=== PATIENT | male | born 1950 | race Two or more races ===

== ENCOUNTER → 2017-03-24 | Outpatient (CLI) | payer OTHER ==
[2017-03-24 11:04] LABS: Urine RBC None Seen /hpf (0 - 3)
[2017-03-24 12:00] LABS: Basophils # (auto) 0 uL; Basophils % (auto) 0.5 % (0.0-2.0); Eosinophils # (auto) 0.3 uL; Eosinophils % (auto) 6.1 % (0.0-7.0); Hematocrit 49.8 % (41.0-53.0); Hemoglobin 16.9 g/dL (13.5-17.5); Lymphocytes # (auto) 1.3 uL; Mean Corpuscular Hemoglobin 31.1 pg (28.0-32.0); Mean Corpuscular Hgb Conc. 33.9 g/dL (32.0-36.0); Mean Corpuscular Volume 91.8 fL (80.0-100.0); Mean Platelet Volume 9.8 fL (7.4-10.4); Monocytes # (auto) 0.5 uL; Monocytes % (auto) 10.4 % (0.0-12.0); Neutrophils # (auto) 2.5 uL; Platelet Count (auto) 141 10^3/uL (140-450); White Blood Cell 4.5 10^3/uL (4.4-10.8)
[2017-03-24 12:07] LABS: Urine Bilirubin Negative (Negative); Urine Blood Negative /uL (Negative); Urine Color Yellow (Yellow); Urine Glucose Normal (Normal); Urine Ketone Negative (Negative); Urine Nitrite Negative (Negative); Urine Squamous Epithelial Cell FEW /hpf (<5); Urine Urobilinogen Normal (Negative); Urine pH 7.5 (5.0-8.0)
[2017-03-24 13:08] LABS: Albumin 3.8 g/dL (3.4-5.0); BUN/Creatinine Ratio 17.4; Bilirubin, Total 1.3 mg/dL (0.2-1.0); Calcium 8.7 mg/dL (8.5-10.1); Potassium 5.2 mmol/L (3.5-5.1); Total Protein 7.4 g/dL (6.4-8.2)
== END | disposition home or self-care (01) ==
LOC: LAB 10:47
DX: E78.5 Hyperlipidemia, unspecified (principal)
CPT/HCPCS: 36415; 80053; 80061; 81001; 84443; 85025

== ENCOUNTER 2017-12-17 07:49 | Inpatient (IN) | payer OTHER, MEDICAID ==
[~2017-12-17] VITALS: Ht 175.3 cm; Wt 69.4 kg
[2017-12-17] VITALS (40 sets, daily range): BP systolic 106–167; BP diastolic 74–113
[2017-12-17] MEDS ORDERED: MIDAZOLAM DRIP 50 mg/50mL 50 ML IV ONE (08:08)
[2017-12-17] MEDS: MIDAZOLAM DRIP 50 mg/50mL 50 ML IV SCH ×2 (08:20→22:06)
[2017-12-17 08:33] LABS: Hematocrit 49.6 % (41.0-53.0); Hemoglobin 15.9 g/dL (13.5-17.5); Mean Corpuscular Hemoglobin 30.8 pg (28.0-32.0); Mean Corpuscular Hgb Conc. 32.1 g/dL (32.0-36.0); Mean Corpuscular Volume 95.9 fL (80.0-100.0); Platelet Count (auto) 130 10^3/uL (140-450); Red Blood Cells 5.17 10^6/uL (4.5-5.90); Red Cell Distribution Width 15.5 % (11.8-14.3); White Blood Cell 8.2 10^3/uL (4.4-10.8)
[2017-12-17] MEDS ORDERED: IOHEXOL 350 MG/ML 100ML IJ ONE ×2 (08:34→10:58)
[2017-12-17 08:41] LABS: Band Neutrophils % (manual) 0; Basophils % (manual) 0 (0.0-2.0); Blast Cells 0; Metamyelocytes % 0; Myelocytes % 0; Promyelocytes % 0; Reactive Lymphocytes 0
[2017-12-17 08:44] LABS: Albumin 3.3 g/dL (3.4-5.0); BUN/Creatinine Ratio 10.7; Bilirubin, Total 0.8 mg/dL (0.2-1.0); Calcium 8.2 mg/dL (8.5-10.1); Potassium 3.4 mmol/L (3.5-5.1); Total Protein 7.1 g/dL (6.4-8.2)
[2017-12-17 08:50] LABS: INR 1.03 (0.9-1.15); Partial Thromboplastin Time 28.7 sec (22.64-33.71); Prothrombin Time 11.2 sec (9.37-12.3)
[2017-12-17] MEDS ORDERED: SODIUM CHLORIDE 0.9% 1,000 ML IV ONE ×2 (09:03)
[2017-12-17] MEDS ORDERED: InsuLIN REG 1unit/0.01ml Soln (100units/ml) IV ONE (09:15)
[2017-12-17 09:19] LABS: Eosinophils % (manual) 3 (0-7); Lymphocytes % (manual) 53 (10.0-50.0); Monocytes % (manual) 3 (0-12)
[2017-12-17] MEDS ORDERED: LIDOCAINE 2%HCL (LOCAL ANESTH.) INJ 20ML MDV ONE (10:58)
[2017-12-17] MEDS ORDERED: IODIXANOL 320MG/ML 100ML BTL IV ONE (11:05)
[2017-12-17] MEDS ORDERED: SODIUM CHLORIDE 0.9% 1,000 ML IV SCH (11:12)
[2017-12-17] MEDS ORDERED: PROMETHAZINE HCL 25 MG/ML 1ML IV PRN (11:15)
[2017-12-17] MEDS ORDERED: DEXTROSE (50%) 50ML SYRG IV PRN ×2 (11:15)
[2017-12-17] MEDS ORDERED: NITROGLYCERIN 0.4 MG SL TAB SL PRN (11:15)
[2017-12-17] MEDS ORDERED: MORPHINE SULFATE 4 MG/ML SYR/VIAL IV PRN ×2 (11:15)
[2017-12-17] MEDS ORDERED: LORazepam 2MG/ML-1ML VIAL IV PRN (11:15)
[2017-12-17] MEDS ORDERED: SODIUM BICARBONATE 8.4% INJ 50ML SYRINGE IV ONE (11:21)
[2017-12-17] MEDS ORDERED: EPINEPHrine HCL 1 MG/10 ML SYRG IV ONE (11:21)
[2017-12-17] MEDS ORDERED: ANGIOMAX 250 MG VIAL IV ONE (11:23)
[2017-12-17] MEDS ORDERED: SODIUM CHL 0.9% 50 ML ONE (11:23)
[2017-12-17] MEDS ORDERED: ASPirin 81 mg TAB PO ONE (11:30)
[2017-12-17] MEDS ORDERED: THIAMINE HCL 100 MG/ML 2ML VIAL IV ONE (11:30)
[2017-12-17] MEDS ORDERED: PANTOPRAZOLE 40 MG/10 ML VIAL IV ONE (11:30)
[2017-12-17] MEDS ORDERED: CLOPIDOGREL 300 MG TAB ONE (11:58)
[2017-12-17] MEDS: ACCU-CHEK COMFORT CURVE STRIP VI SCH ×3 (12:00→20:03)
[2017-12-17] MEDS: InsuLIN REG 1unit/0.01ml Soln (100units/ml) SC SCH ×3 (12:00→20:03)
[2017-12-17] MEDS ORDERED: METOPROLOL TARTRATE 1MG/1ML-5ML VIAL IV PRN ×2 (14:15→14:30)
[2017-12-17] MEDS: SODIUM CHLORIDE 0.9% 1,000 ML IV SCH (15:30)
[2017-12-17 15:58] LABS: CRP High Sensitivity 0.301 mg/dL (< 0.3)
[2017-12-17] MEDS: MORPHINE SULFATE 4 MG/ML SYR/VIAL IV PRN (16:35)
[2017-12-17 16:58] LABS: Alcohol, Urine < 3.0 mg/dL (0-5); Amphetamine Screen, Urine NEGATIVE (NEGATIVE); Barbiturate Scree,Urine NEGATIVE (NEGATIVE); Benzodiazephine Screen, Urine POSITIVE (NEGATIVE); Cannabinoid Screen, Urine NEGATIVE (NEGATIVE); Cocaine Screen, Urine NEGATIVE (NEGATIVE); Opiate Scree,Urine NEGATIVE (NEGATIVE); Phencyclidine Screen, Urine NEGATIVE (NEGATIVE)
[2017-12-17 17:15] LABS: Urine Bacteria NONE SEEN /hpf (None Seen); Urine Blood 2+ /uL (Negative); Urine Mucus FEW (None Seen); Urine WBC 8 /hpf (0 - 3)
[2017-12-17 17:16] LABS: Urine Specific Gravity > 1.050 (1.001-1.035)
[2017-12-17] MEDS ORDERED: MULT-352 OR (20:58)
[2017-12-17] MEDS ORDERED: IBUP200C3 PO (20:58)
[2017-12-17] MEDS ORDERED: MELA3TAB27 PO (20:58)
[2017-12-17] MEDS: ATORVASTATIN 20 MG TAB PO SCH (22:06)
[2017-12-17] MEDS: METOPROLOL TARTRATE 50 MG TAB PO SCH (22:07)
[2017-12-18] VITALS (99 sets, daily range): BP systolic 100–155; BP diastolic 61–110
[2017-12-18] MEDS: ACCU-CHEK COMFORT CURVE STRIP VI SCH ×6 (00:11→20:00)
[2017-12-18] MEDS: InsuLIN REG 1unit/0.01ml Soln (100units/ml) SC SCH ×6 (00:12→20:00)
[2017-12-18] MEDS: SODIUM CHLORIDE 0.9% 1,000 ML IV SCH ×2 (03:15→14:30)
[2017-12-18 04:37] LABS: Basophils # (auto) 0 uL; Basophils % (auto) 0.1 % (0.0-2.0); Eosinophils # (auto) 0 uL; Hematocrit 46.7 % (41.0-53.0); Hemoglobin 15.9 g/dL (13.5-17.5); Lymphocytes # (auto) 0.5 uL; Lymphocytes % (auto) 4.2 % (10.0-50.0); Mean Corpuscular Hemoglobin 30.9 pg (28.0-32.0); Mean Corpuscular Volume 90.7 fL (80.0-100.0); Monocytes # (auto) 1.1 uL; Monocytes % (auto) 8.2 % (0.0-12.0); Neutrophils # (auto) 11.3 uL; Neutrophils % (auto) 87.5 % (37.0-80.0); Nucleated Red Blood Cells % 0.5 %; Platelet Count (auto) 121 10^3/uL (140-450); Red Blood Cells 5.15 10^6/uL (4.5-5.90); Red Cell Distribution Width 14.7 % (11.8-14.3); White Blood Cell 12.9 10^3/uL (4.4-10.8)
[2017-12-18 05:01] LABS: Albumin 3.3 g/dL (3.4-5.0); BUN/Creatinine Ratio 25.9; Bilirubin, Total 1.9 mg/dL (0.2-1.0); Calcium 7.8 mg/dL (8.5-10.1); Potassium 4.2 mmol/L (3.5-5.1); Total Protein 6.9 g/dL (6.4-8.2)
[2017-12-18 05:07] LABS: Cholesterol 188 mg/dL (< 200); HDL Cholesterol 49 mg/dL (40-59); LDL Cholesterol 129 mg/dL (< 100); Triglycerides 105 mg/dL (< 150)
[2017-12-18] MEDS: MORPHINE SULFATE 4 MG/ML SYR/VIAL IV PRN ×3 (06:13→21:48)
[2017-12-18] MEDS: LISINOPRIL 10 MG TAB PO SCH (10:00)
[2017-12-18] MEDS: PANTOPRAZOLE 40 MG/10 ML VIAL IV SCH (10:07)
[2017-12-18] MEDS: THIAMINE HCL 100 MG/ML 2ML VIAL IV SCH (10:07)
[2017-12-18] MEDS: METOPROLOL TARTRATE 50 MG TAB PO SCH ×2 (10:08→22:00)
[2017-12-18] MEDS: ASPirin 81 mg TAB PO SCH (10:08)
[2017-12-18] MEDS: MIDAZOLAM DRIP 50 mg/50mL 50 ML IV SCH ×3 (10:43→20:43)
[2017-12-18] MEDS ORDERED: FAM20T PO (18:21)
[2017-12-18] MEDS ORDERED: [UNRECOGNIZED DRUG - CODE] OR (18:21)
[2017-12-18] MEDS ORDERED: LEVO750T2 PO (18:21)
[2017-12-18] MEDS: ATORVASTATIN 20 MG TAB PO SCH (22:00)
[2017-12-18] MEDS: PROPOFOL 100 ML IV SCH (23:45)
[2017-12-19] VITALS (88 sets, daily range): BP systolic 85–118; BP diastolic 51–78
[2017-12-19] MEDS: ACCU-CHEK COMFORT CURVE STRIP VI SCH ×6 (00:15→20:00)
[2017-12-19] MEDS: MORPHINE SULFATE 4 MG/ML SYR/VIAL IV PRN (00:18)
[2017-12-19] MEDS ORDERED: PROPOFOL 100 ML IV ONE (00:45)
[2017-12-19] MEDS: MIDAZOLAM DRIP 50 mg/50mL 50 ML IV SCH ×3 (01:40→06:07)
[2017-12-19] MEDS: InsuLIN REG 1unit/0.01ml Soln (100units/ml) SC SCH ×6 (04:00→20:00)
[2017-12-19] MEDS: SODIUM CHLORIDE 0.9% 1,000 ML IV SCH ×2 (04:15→16:45)
[2017-12-19 04:57] LABS: Basophils # (auto) 0 uL; Basophils % (auto) 0.1 % (0.0-2.0); Eosinophils # (auto) 0 uL; Eosinophils % (auto) 0.1 % (0.0-7.0); Hematocrit 41.8 % (41.0-53.0); Hemoglobin 14.1 g/dL (13.5-17.5); Lymphocytes # (auto) 0.4 uL; Lymphocytes % (auto) 11.1 % (10.0-50.0); Mean Corpuscular Hemoglobin 31.1 pg (28.0-32.0); Mean Corpuscular Hgb Conc. 33.9 g/dL (32.0-36.0); Mean Corpuscular Volume 91.8 fL (80.0-100.0); Monocytes # (auto) 0.4 uL; Monocytes % (auto) 11.6 % (0.0-12.0); Neutrophils # (auto) 2.8 uL; Neutrophils % (auto) 77.1 % (37.0-80.0); Nucleated Red Blood Cells % 0.1 %; Platelet Count (auto) 81 10^3/uL (140-450); Red Blood Cells 4.55 10^6/uL (4.5-5.90); Red Cell Distribution Width 14.5 % (11.8-14.3); White Blood Cell 3.6 10^3/uL (4.4-10.8)
[2017-12-19 05:00] LABS: BUN/Creatinine Ratio 31.1; Calcium 7.7 mg/dL (8.5-10.1); Potassium 3.6 mmol/L (3.5-5.1)
[2017-12-19] MEDS: PROPOFOL 100 ML IV SCH (07:54)
[2017-12-19] MEDS: LISINOPRIL 10 MG TAB PO SCH (09:55)
[2017-12-19] MEDS: METOPROLOL TARTRATE 50 MG TAB PO SCH ×2 (09:55→22:00)
[2017-12-19] MEDS: ASPirin 81 mg TAB PO SCH (09:56)
[2017-12-19] MEDS: PANTOPRAZOLE 40 MG/10 ML VIAL IV SCH (09:56)
[2017-12-19] MEDS: THIAMINE HCL 100 MG/ML 2ML VIAL IV SCH (09:56)
[2017-12-19] MEDS: NOREPINEPHRINE 8 MG/250ML KIT 250 ML IV SCH (16:45)
[2017-12-19] MEDS ORDERED: cefTRIAXone 1GM/10ml IVPUSH 10 ML IV SCH (17:00)
[2017-12-19] MEDS ORDERED: VANCOMYCIN 1,250 MG in D5W 5% 250 ML IV SCH (18:00)
[2017-12-19] MEDS: ATORVASTATIN 20 MG TAB PO SCH (22:00)
[2017-12-20] VITALS (95 sets, daily range): BP systolic 85–154; BP diastolic 45–86
[2017-12-20] MEDS: InsuLIN REG 1unit/0.01ml Soln (100units/ml) SC SCH ×3 (04:00→08:00)
[2017-12-20] MEDS: ACCU-CHEK COMFORT CURVE STRIP VI SCH ×3 (04:00→08:14)
[2017-12-20 04:01] LABS: Basophils # (auto) 0 uL; Basophils % (auto) 0.1 % (0.0-2.0); Eosinophils # (auto) 0 uL; Eosinophils % (auto) 0.1 % (0.0-7.0); Hematocrit 35.1 % (41.0-53.0); Hemoglobin 12.3 g/dL (13.5-17.5); Lymphocytes # (auto) 0.5 uL; Lymphocytes % (auto) 9.1 % (10.0-50.0); Mean Corpuscular Hgb Conc. 34.9 g/dL (32.0-36.0); Mean Corpuscular Volume 91.5 fL (80.0-100.0); Monocytes # (auto) 0.4 uL; Monocytes % (auto) 8.4 % (0.0-12.0); Neutrophils # (auto) 4.1 uL; Neutrophils % (auto) 82.3 % (37.0-80.0); Platelet Count (auto) 68 10^3/uL (140-450); Red Blood Cells 3.84 10^6/uL (4.5-5.90); Red Cell Distribution Width 14.6 % (11.8-14.3)
[2017-12-20 04:17] LABS: BUN/Creatinine Ratio 38.4; Calcium 7.9 mg/dL (8.5-10.1); Potassium 3.7 mmol/L (3.5-5.1)
[2017-12-20] MEDS: SODIUM CHLORIDE 0.9% 1,000 ML IV SCH ×2 (05:13→17:45)
[2017-12-20] MEDS: MIDAZOLAM DRIP 50 mg/50mL 50 ML IV SCH (08:53)
[2017-12-20] MEDS: LISINOPRIL 10 MG TAB PO SCH (10:00)
[2017-12-20] MEDS ORDERED: VANCOMYCIN 1GM/250ML 250 ML IV SCH (10:00)
[2017-12-20] MEDS: METOPROLOL TARTRATE 50 MG TAB PO SCH ×2 (10:00→21:45)
[2017-12-20] MEDS: THIAMINE HCL 100 MG/ML 2ML VIAL IV SCH (10:29)
[2017-12-20] MEDS: ASPirin 81 mg TAB PO SCH (10:30)
[2017-12-20] MEDS: PANTOPRAZOLE 40 MG/10 ML VIAL IV SCH (10:30)
[2017-12-20] MEDS: VANCOMYCIN 1,250 MG in D5W 5% 250 ML IV SCH ×2 (10:30→21:45)
[2017-12-20] MEDS ORDERED: LEVOFLOXACIN 750MG 150 ML IV SCH (11:00)
[2017-12-20] MEDS: NOREPINEPHRINE 8 MG/250ML KIT 250 ML IV SCH (11:45)
[2017-12-20] MEDS ORDERED: PIPERACILLIN-TAZOB 3.375GM 50 ML IV SCH (12:00)
[2017-12-20] MEDS: LEVOFLOXACIN 500MG 100 ML IV SCH (16:30)
[2017-12-20] MEDS: LEVOFLOXACIN 250MG 50 ML IV SCH (17:23)
[2017-12-20] MEDS: ATORVASTATIN 20 MG TAB PO SCH (21:45)
[2017-12-20] MEDS: AMIODARONE HCL 200 MG TAB PO SCH (21:45)
[2017-12-21] VITALS (104 sets, daily range): BP systolic 11–137; BP diastolic 43–88
[2017-12-21] MEDS: PROPOFOL 100 ML IV SCH (00:49)
[2017-12-21] MEDS: MIDAZOLAM DRIP 50 mg/50mL 50 ML IV SCH (02:00)
[2017-12-21 04:06] LABS: Basophils # (auto) 0 uL; Basophils % (auto) 0.1 % (0.0-2.0); Eosinophils # (auto) 0 uL; Eosinophils % (auto) 0.7 % (0.0-7.0); Hematocrit 34.5 % (41.0-53.0); Hemoglobin 11.7 g/dL (13.5-17.5); Lymphocytes # (auto) 0.3 uL; Mean Corpuscular Hemoglobin 30.9 pg (28.0-32.0); Mean Corpuscular Volume 90.9 fL (80.0-100.0); Monocytes # (auto) 0.5 uL; Monocytes % (auto) 9.9 % (0.0-12.0); Neutrophils # (auto) 4.4 uL; Neutrophils % (auto) 83.3 % (37.0-80.0); Platelet Count (auto) 75 10^3/uL (140-450); Red Cell Distribution Width 14.2 % (11.8-14.3); White Blood Cell 5.2 10^3/uL (4.4-10.8)
[2017-12-21 04:13] LABS: Calcium 8.1 mg/dL (8.5-10.1); Potassium 3.6 mmol/L (3.5-5.1)
[2017-12-21 04:17] LABS: BUN/Creatinine Ratio 43.3
[2017-12-21] MEDS: SODIUM CHLORIDE 0.9% 1,000 ML IV SCH ×2 (06:26→18:41)
[2017-12-21] MEDS: LISINOPRIL 10 MG TAB PO SCH (10:00)
[2017-12-21] MEDS: METOPROLOL TARTRATE 50 MG TAB PO SCH ×2 (10:00→22:00)
[2017-12-21] MEDS: ASPirin 81 mg TAB PO SCH (10:33)
[2017-12-21] MEDS: THIAMINE HCL 100 MG/ML 2ML VIAL IV SCH (10:33)
[2017-12-21] MEDS: AMIODARONE HCL 200 MG TAB PO SCH ×2 (10:33→22:15)
[2017-12-21] MEDS: PANTOPRAZOLE 40 MG/10 ML VIAL IV SCH (10:33)
[2017-12-21] MEDS: VANCOMYCIN 1,250 MG in D5W 5% 250 ML IV SCH ×2 (10:40→20:20)
[2017-12-21] MEDS: LEVOFLOXACIN 500MG 100 ML IV SCH (16:00)
[2017-12-21] MEDS: NOREPINEPHRINE 8 MG/250ML KIT 250 ML IV SCH (16:45)
[2017-12-21] MEDS: LEVOFLOXACIN 250MG 50 ML IV SCH (17:14)
[2017-12-21] MEDS: ATORVASTATIN 20 MG TAB PO SCH (22:15)
[2017-12-22] VITALS (90 sets, daily range): BP systolic 101–167; BP diastolic 58–110
[2017-12-22] MEDS: PROPOFOL 100 ML IV SCH (00:05)
[2017-12-22] MEDS: VANCOMYCIN 1,250 MG in D5W 5% 250 ML IV SCH ×3 (04:00→22:55)
[2017-12-22 04:21] LABS: Basophils # (auto) 0 uL; Basophils % (auto) 0.1 % (0.0-2.0); Eosinophils # (auto) 0.1 uL; Eosinophils % (auto) 1.6 % (0.0-7.0); Hematocrit 34.4 % (41.0-53.0); Hemoglobin 11.9 g/dL (13.5-17.5); Lymphocytes # (auto) 0.4 uL; Lymphocytes % (auto) 7.9 % (10.0-50.0); Mean Corpuscular Hemoglobin 31.1 pg (28.0-32.0); Mean Corpuscular Hgb Conc. 34.5 g/dL (32.0-36.0); Mean Corpuscular Volume 90.2 fL (80.0-100.0); Monocytes # (auto) 0.5 uL; Monocytes % (auto) 10.2 % (0.0-12.0); Neutrophils # (auto) 4.1 uL; Neutrophils % (auto) 80.2 % (37.0-80.0); Platelet Count (auto) 92 10^3/uL (140-450); Red Blood Cells 3.82 10^6/uL (4.5-5.90); Red Cell Distribution Width 14.6 % (11.8-14.3); White Blood Cell 5.2 10^3/uL (4.4-10.8)
[2017-12-22 04:24] LABS: Albumin 1.9 g/dL (3.4-5.0); Calcium 8.1 mg/dL (8.5-10.1); Potassium 3.6 mmol/L (3.5-5.1)
[2017-12-22 04:30] LABS: BUN/Creatinine Ratio 40.4; Bilirubin, Total 1.5 mg/dL (0.2-1.0); Total Protein 5.7 g/dL (6.4-8.2)
[2017-12-22] MEDS: SODIUM CHLORIDE 0.9% 1,000 ML IV SCH ×2 (04:49→19:45)
[2017-12-22] MEDS: MIDAZOLAM DRIP 50 mg/50mL 50 ML IV SCH ×2 (08:30→20:13)
[2017-12-22] MEDS: METOPROLOL TARTRATE 50 MG TAB PO SCH ×2 (10:00→22:57)
[2017-12-22] MEDS: LISINOPRIL 10 MG TAB PO SCH (10:00)
[2017-12-22] MEDS: THIAMINE HCL 100 MG/ML 2ML VIAL IV SCH (10:49)
[2017-12-22] MEDS: PANTOPRAZOLE 40 MG/10 ML VIAL IV SCH (10:49)
[2017-12-22] MEDS: AMIODARONE HCL 200 MG TAB PO SCH ×2 (10:50→22:56)
[2017-12-22] MEDS: ASPirin 81 mg TAB PO SCH (10:50)
[2017-12-22] MEDS: LEVOFLOXACIN 500MG 100 ML IV SCH (16:34)
[2017-12-22] MEDS: NOREPINEPHRINE 8 MG/250ML KIT 250 ML IV SCH (16:45)
[2017-12-22] MEDS: LEVOFLOXACIN 250MG 50 ML IV SCH (18:00)
[2017-12-22] MEDS: ATORVASTATIN 20 MG TAB PO SCH (22:56)
[2017-12-23] VITALS (65 sets, daily range): BP systolic 112–152; BP diastolic 58–88
[2017-12-23] MEDS: PROPOFOL 100 ML IV SCH (00:49)
[2017-12-23 03:35] LABS: Basophils # (auto) 0 uL; Basophils % (auto) 0.1 % (0.0-2.0); Eosinophils # (auto) 0.1 uL; Eosinophils % (auto) 1.3 % (0.0-7.0); Hematocrit 36.1 % (41.0-53.0); Hemoglobin 12.1 g/dL (13.5-17.5); Lymphocytes # (auto) 0.4 uL; Lymphocytes % (auto) 6.7 % (10.0-50.0); Mean Corpuscular Hemoglobin 30.6 pg (28.0-32.0); Mean Corpuscular Hgb Conc. 33.7 g/dL (32.0-36.0); Mean Corpuscular Volume 90.8 fL (80.0-100.0); Monocytes # (auto) 0.8 uL; Monocytes % (auto) 12.3 % (0.0-12.0); Neutrophils # (auto) 4.9 uL; Neutrophils % (auto) 79.6 % (37.0-80.0); Nucleated Red Blood Cells % 0.1 %; Platelet Count (auto) 120 10^3/uL (140-450); Red Blood Cells 3.97 10^6/uL (4.5-5.90); Red Cell Distribution Width 14.6 % (11.8-14.3); White Blood Cell 6.1 10^3/uL (4.4-10.8)
[2017-12-23 05:05] LABS: Calcium 8.2 mg/dL (8.5-10.1); Potassium 3.3 mmol/L (3.5-5.1)
[2017-12-23 05:07] LABS: BUN/Creatinine Ratio 36.5
[2017-12-23] MEDS: SODIUM CHLORIDE 0.9% 1,000 ML IV SCH ×2 (08:15→21:11)
[2017-12-23] MEDS: PANTOPRAZOLE 40 MG/10 ML VIAL IV SCH (10:47)
[2017-12-23] MEDS: THIAMINE HCL 100 MG/ML 2ML VIAL IV SCH (10:50)
[2017-12-23] MEDS: AMIODARONE HCL 200 MG TAB PO SCH ×2 (10:50→21:10)
[2017-12-23] MEDS: ASPirin 81 mg TAB PO SCH (10:50)
[2017-12-23] MEDS: METOPROLOL TARTRATE 50 MG TAB PO SCH ×2 (10:51→21:11)
[2017-12-23] MEDS: VANCOMYCIN 1,250 MG in D5W 5% 250 ML IV SCH ×2 (11:10→23:00)
[2017-12-23] MEDS: NOREPINEPHRINE 8 MG/250ML KIT 250 ML IV SCH (15:49)
[2017-12-23] MEDS ORDERED: POTASSIUM CHL 20MEQ/100ML 100 ML IV ONE (16:00)
[2017-12-23] MEDS: LEVOFLOXACIN 250MG 50 ML IV SCH (16:54)
[2017-12-23] MEDS: LEVOFLOXACIN 500MG 100 ML IV SCH (17:33)
[2017-12-23] MEDS: LISINOPRIL 10 MG TAB PO SCH (17:34)
[2017-12-23] MEDS: ATORVASTATIN 20 MG TAB PO SCH (21:10)
[2017-12-23] MEDS: MIDAZOLAM DRIP 50 mg/50mL 50 ML IV SCH (21:10)
[2017-12-24] VITALS (86 sets, daily range): BP systolic 95–156; BP diastolic 53–89
[2017-12-24] MEDS: PROPOFOL 100 ML IV SCH (00:49)
[2017-12-24] MEDS: MIDAZOLAM DRIP 50 mg/50mL 50 ML IV SCH ×3 (03:36→23:51)
[2017-12-24 03:45] LABS: Basophils # (auto) 0 uL; Basophils % (auto) 0.6 % (0.0-2.0); Eosinophils # (auto) 0.1 uL; Eosinophils % (auto) 1.2 % (0.0-7.0); Hematocrit 37.5 % (41.0-53.0); Hemoglobin 12.8 g/dL (13.5-17.5); Lymphocytes # (auto) 0.5 uL; Lymphocytes % (auto) 6.5 % (10.0-50.0); Mean Corpuscular Hemoglobin 30.5 pg (28.0-32.0); Mean Corpuscular Hgb Conc. 34.1 g/dL (32.0-36.0); Mean Corpuscular Volume 89.5 fL (80.0-100.0); Monocytes % (auto) 13.9 % (0.0-12.0); Neutrophils # (auto) 5.9 uL; Neutrophils % (auto) 77.8 % (37.0-80.0); Platelet Count (auto) 164 10^3/uL (140-450); Red Blood Cells 4.19 10^6/uL (4.5-5.90); Red Cell Distribution Width 14.8 % (11.8-14.3); White Blood Cell 7.5 10^3/uL (4.4-10.8)
[2017-12-24 04:04] LABS: BUN/Creatinine Ratio 29.4; Calcium 7.7 mg/dL (8.5-10.1); Potassium 3.4 mmol/L (3.5-5.1)
[2017-12-24] MEDS: METOPROLOL TARTRATE 50 MG TAB PO SCH ×2 (09:20→22:30)
[2017-12-24] MEDS: LISINOPRIL 10 MG TAB PO SCH (09:21)
[2017-12-24] MEDS: ASPirin 81 mg TAB PO SCH (09:21)
[2017-12-24] MEDS: AMIODARONE HCL 200 MG TAB PO SCH ×2 (09:22→22:30)
[2017-12-24] MEDS: PANTOPRAZOLE 40 MG/10 ML VIAL IV SCH (09:33)
[2017-12-24] MEDS: SODIUM CHLORIDE 0.9% 1,000 ML IV SCH ×2 (09:34→21:45)
[2017-12-24] MEDS: THIAMINE HCL 100 MG TAB GT SCH (11:12)
[2017-12-24] MEDS: VANCOMYCIN 1,250 MG in D5W 5% 250 ML IV SCH ×2 (11:12→20:40)
[2017-12-24] MEDS: NOREPINEPHRINE 8 MG/250ML KIT 250 ML IV SCH (13:24)
[2017-12-24] MEDS: MORPHINE SULFATE 4 MG/ML SYR/VIAL IV PRN ×2 (14:00→22:53)
[2017-12-24] MEDS: LEVOFLOXACIN 500MG 100 ML IV SCH (17:00)
[2017-12-24] MEDS: LEVOFLOXACIN 250MG 50 ML IV SCH (17:50)
[2017-12-24] MEDS: ATORVASTATIN 20 MG TAB PO SCH (22:30)
[2017-12-25] VITALS (99 sets, daily range): BP systolic 103–159; BP diastolic 55–96
[2017-12-25] MEDS: PROPOFOL 100 ML IV SCH (00:49)
[2017-12-25 04:05] LABS: Basophils # (auto) 0 uL; Basophils % (auto) 0.1 % (0.0-2.0); Eosinophils # (auto) 0.2 uL; Eosinophils % (auto) 2.6 % (0.0-7.0); Hematocrit 38.3 % (41.0-53.0); Lymphocytes # (auto) 0.6 uL; Lymphocytes % (auto) 8.6 % (10.0-50.0); Mean Corpuscular Hemoglobin 30.4 pg (28.0-32.0); Mean Corpuscular Hgb Conc. 33.9 g/dL (32.0-36.0); Mean Corpuscular Volume 89.6 fL (80.0-100.0); Monocytes % (auto) 14.1 % (0.0-12.0); Neutrophils # (auto) 5.4 uL; Neutrophils % (auto) 74.6 % (37.0-80.0); Nucleated Red Blood Cells % 0.1 %; Platelet Count (auto) 195 10^3/uL (140-450); Red Blood Cells 4.28 10^6/uL (4.5-5.90); Red Cell Distribution Width 14.9 % (11.8-14.3); White Blood Cell 7.2 10^3/uL (4.4-10.8)
[2017-12-25 04:23] LABS: Albumin 1.8 g/dL (3.4-5.0); BUN/Creatinine Ratio 23.1; Calcium 7.3 mg/dL (8.5-10.1); Potassium 3.2 mmol/L (3.5-5.1)
[2017-12-25 04:25] LABS: Total Protein 5.5 g/dL (6.4-8.2)
[2017-12-25] MEDS: VANCOMYCIN 1,250 MG in D5W 5% 250 ML IV SCH ×2 (06:56→17:00)
[2017-12-25] MEDS ORDERED: POTASSIUM CHL 20MEQ/100ML 100 ML IV ONE (08:15)
[2017-12-25] MEDS: THIAMINE HCL 100 MG TAB GT SCH (10:00)
[2017-12-25] MEDS: PANTOPRAZOLE 40 MG/10 ML VIAL IV SCH (10:00)
[2017-12-25] MEDS: AMIODARONE HCL 200 MG TAB PO SCH ×2 (10:00→21:31)
[2017-12-25] MEDS: METOPROLOL TARTRATE 50 MG TAB PO SCH ×2 (10:00→21:30)
[2017-12-25] MEDS: LISINOPRIL 10 MG TAB PO SCH (10:00)
[2017-12-25] MEDS: ASPirin 81 mg TAB PO SCH (10:00)
[2017-12-25] MEDS: SODIUM CHLORIDE 0.9% 1,000 ML IV SCH ×2 (10:15→22:45)
[2017-12-25] MEDS ORDERED: CLOPIDOGREL 300 MG TAB NG ONE (14:45)
[2017-12-25] MEDS: NOREPINEPHRINE 8 MG/250ML KIT 250 ML IV SCH (15:20)
[2017-12-25] MEDS: LEVOFLOXACIN 750MG 150 ML IV SCH (15:53)
[2017-12-25] MEDS: MIDAZOLAM DRIP 50 mg/50mL 50 ML IV SCH (16:04)
[2017-12-25] MEDS: MORPHINE SULFATE 4 MG/ML SYR/VIAL IV PRN (19:41)
[2017-12-25] MEDS: ATORVASTATIN 20 MG TAB PO SCH (21:30)
[2017-12-26] VITALS (72 sets, daily range): BP systolic 87–154; BP diastolic 47–85
[2017-12-26] MEDS: PROPOFOL 100 ML IV SCH (00:49)
[2017-12-26] MEDS: MIDAZOLAM DRIP 50 mg/50mL 50 ML IV SCH ×3 (00:58→16:00)
[2017-12-26] MEDS: VANCOMYCIN 1,250 MG in D5W 5% 250 ML IV SCH ×3 (02:49→23:23)
[2017-12-26 04:16] LABS: Basophils # (auto) 0 uL; Basophils % (auto) 0.1 % (0.0-2.0); Eosinophils # (auto) 0.2 uL; Eosinophils % (auto) 2.9 % (0.0-7.0); Hematocrit 38.6 % (41.0-53.0); Lymphocytes # (auto) 0.5 uL; Mean Corpuscular Hemoglobin 30.4 pg (28.0-32.0); Mean Corpuscular Hgb Conc. 33.6 g/dL (32.0-36.0); Mean Corpuscular Volume 90.4 fL (80.0-100.0); Monocytes # (auto) 0.8 uL; Monocytes % (auto) 10.9 % (0.0-12.0); Neutrophils # (auto) 6.1 uL; Neutrophils % (auto) 79.1 % (37.0-80.0); Nucleated Red Blood Cells % 0.1 %; Platelet Count (auto) 216 10^3/uL (140-450); Red Blood Cells 4.27 10^6/uL (4.5-5.90); White Blood Cell 7.7 10^3/uL (4.4-10.8)
[2017-12-26 04:33] LABS: BUN/Creatinine Ratio 17.7; Calcium 7.5 mg/dL (8.5-10.1); Potassium 3.1 mmol/L (3.5-5.1)
[2017-12-26] MEDS: MORPHINE SULFATE 4 MG/ML SYR/VIAL IV PRN (09:05)
[2017-12-26] MEDS: PANTOPRAZOLE 40 MG/10 ML VIAL IV SCH (10:49)
[2017-12-26] MEDS: POTASSIUM CHL 20MEQ/100ML 100 ML IV SCH ×2 (10:49→13:03)
[2017-12-26] MEDS: CLOPIDOGREL BISULFATE 75 MG TAB NG SCH (10:50)
[2017-12-26] MEDS: ASPirin 81 mg TAB PO SCH (10:50)
[2017-12-26] MEDS: METOPROLOL TARTRATE 50 MG TAB PO SCH ×2 (10:50→21:52)
[2017-12-26] MEDS: THIAMINE HCL 100 MG TAB GT SCH (10:50)
[2017-12-26] MEDS: AMIODARONE HCL 200 MG TAB PO SCH ×2 (10:50→21:51)
[2017-12-26] MEDS: LISINOPRIL 10 MG TAB PO SCH (10:50)
[2017-12-26] MEDS: SODIUM CHLORIDE 0.9% 1,000 ML IV SCH ×2 (12:27→20:56)
[2017-12-26] MEDS: NYSTATIN (MOUTH-THROAT) 500,000 UNITS/5 ML SUSP MT SCH ×2 (13:06→21:51)
[2017-12-26] MEDS: ACETAMINOPHEN 650 mg PER 20 mL UD GT PRN (13:07)
[2017-12-26] MEDS: LEVOFLOXACIN 750MG 150 ML IV SCH (15:59)
[2017-12-26] MEDS: NOREPINEPHRINE 8 MG/250ML KIT 250 ML IV SCH (17:36)
[2017-12-26] MEDS: ATORVASTATIN 20 MG TAB PO SCH (21:51)
[2017-12-27] VITALS (60 sets, daily range): BP systolic 111–162; BP diastolic 61–90
[2017-12-27] MEDS: PROPOFOL 100 ML IV SCH (00:49)
[2017-12-27] MEDS: MIDAZOLAM DRIP 50 mg/50mL 50 ML IV SCH ×2 (02:55→09:23)
[2017-12-27 04:07] LABS: Basophils # (auto) 0 uL; Basophils % (auto) 0.3 % (0.0-2.0); Eosinophils # (auto) 0.2 uL; Hematocrit 37.2 % (41.0-53.0); Hemoglobin 12.7 g/dL (13.5-17.5); Lymphocytes # (auto) 0.6 uL; Mean Corpuscular Hemoglobin 30.7 pg (28.0-32.0); Mean Corpuscular Hgb Conc. 34.2 g/dL (32.0-36.0); Mean Corpuscular Volume 89.7 fL (80.0-100.0); Monocytes # (auto) 0.7 uL; Monocytes % (auto) 8.3 % (0.0-12.0); Neutrophils # (auto) 6.6 uL; Neutrophils % (auto) 81.4 % (37.0-80.0); Nucleated Red Blood Cells % 0.1 %; Platelet Count (auto) 228 10^3/uL (140-450); Red Blood Cells 4.15 10^6/uL (4.5-5.90); Red Cell Distribution Width 15.1 % (11.8-14.3); White Blood Cell 8.1 10^3/uL (4.4-10.8)
[2017-12-27 04:26] LABS: Albumin 1.6 g/dL (3.4-5.0); BUN/Creatinine Ratio 13.4; Bilirubin, Total 3.6 mg/dL (0.2-1.0); Calcium 7.6 mg/dL (8.5-10.1); Potassium 3.5 mmol/L (3.5-5.1); Total Protein 5.8 g/dL (6.4-8.2)
[2017-12-27] MEDS: NYSTATIN (MOUTH-THROAT) 500,000 UNITS/5 ML SUSP MT SCH ×3 (05:31→21:31)
[2017-12-27] MEDS: ACETAMINOPHEN 650 mg PER 20 mL UD GT PRN (06:00)
[2017-12-27] MEDS: VANCOMYCIN 1,250 MG in D5W 5% 250 ML IV SCH ×2 (09:23→18:45)
[2017-12-27] MEDS: PANTOPRAZOLE 40 MG/10 ML VIAL IV SCH (09:23)
[2017-12-27] MEDS: CLOPIDOGREL BISULFATE 75 MG TAB NG SCH (09:24)
[2017-12-27] MEDS: THIAMINE HCL 100 MG TAB GT SCH (09:24)
[2017-12-27] MEDS: ASPirin 81 mg TAB PO SCH (09:24)
[2017-12-27] MEDS: METOPROLOL TARTRATE 50 MG TAB PO SCH ×2 (09:24→21:31)
[2017-12-27] MEDS: LISINOPRIL 10 MG TAB PO SCH (09:24)
[2017-12-27] MEDS: AMIODARONE HCL 200 MG TAB PO SCH ×2 (09:24→21:31)
[2017-12-27] MEDS: SODIUM CHLORIDE 0.9% 1,000 ML IV SCH ×3 (12:15→22:00)
[2017-12-27] MEDS ORDERED: BISACODYL 10 MG RECT SUPP PR ONE (15:45)
[2017-12-27] MEDS: NOREPINEPHRINE 8 MG/250ML KIT 250 ML IV SCH (16:45)
[2017-12-27] MEDS: LEVOFLOXACIN 750MG 150 ML IV SCH (16:58)
[2017-12-27] MEDS ORDERED: FUROSEMIDE 40 MG/4 ML VIAL IV ONE (17:00)
[2017-12-27] MEDS: ATORVASTATIN 20 MG TAB PO SCH (21:30)
[2017-12-28] VITALS (84 sets, daily range): BP systolic 97–160; BP diastolic 47–91
[2017-12-28] MEDS: PROPOFOL 100 ML IV SCH (00:49)
[2017-12-28] MEDS: ACETAMINOPHEN 650 mg PER 20 mL UD GT PRN (01:18)
[2017-12-28 03:53] LABS: Basophils # (auto) 0.1 uL; Basophils % (auto) 0.9 % (0.0-2.0); Eosinophils # (auto) 0.3 uL; Eosinophils % (auto) 2.8 % (0.0-7.0); Hematocrit 38.6 % (41.0-53.0); Hemoglobin 13.2 g/dL (13.5-17.5); Lymphocytes # (auto) 0.6 uL; Lymphocytes % (auto) 6.7 % (10.0-50.0); Mean Corpuscular Hemoglobin 30.6 pg (28.0-32.0); Mean Corpuscular Hgb Conc. 34.1 g/dL (32.0-36.0); Mean Corpuscular Volume 89.7 fL (80.0-100.0); Monocytes # (auto) 0.7 uL; Monocytes % (auto) 7.8 % (0.0-12.0); Neutrophils # (auto) 7.5 uL; Neutrophils % (auto) 81.8 % (37.0-80.0); Platelet Count (auto) 240 10^3/uL (140-450); Red Blood Cells 4.31 10^6/uL (4.5-5.90); Red Cell Distribution Width 14.7 % (11.8-14.3); White Blood Cell 9.2 10^3/uL (4.4-10.8)
[2017-12-28 04:05] LABS: Potassium 3.1 mmol/L (3.5-5.1)
[2017-12-28 04:12] LABS: Albumin 1.7 g/dL (3.4-5.0); BUN/Creatinine Ratio 13.8; Bilirubin, Total 2.9 mg/dL (0.2-1.0); Calcium 7.6 mg/dL (8.5-10.1); Total Protein 5.9 g/dL (6.4-8.2)
[2017-12-28] MEDS: VANCOMYCIN 1,250 MG in D5W 5% 250 ML IV SCH ×2 (04:35→17:17)
[2017-12-28] MEDS: NYSTATIN (MOUTH-THROAT) 500,000 UNITS/5 ML SUSP MT SCH ×3 (06:25→22:29)
[2017-12-28] MEDS: PANTOPRAZOLE 40 MG/10 ML VIAL IV SCH (10:43)
[2017-12-28] MEDS: METOPROLOL TARTRATE 50 MG TAB PO SCH ×2 (10:44→22:30)
[2017-12-28] MEDS: THIAMINE HCL 100 MG TAB GT SCH (10:44)
[2017-12-28] MEDS: ASPirin 81 mg TAB PO SCH (10:44)
[2017-12-28] MEDS: CLOPIDOGREL BISULFATE 75 MG TAB NG SCH (10:44)
[2017-12-28] MEDS: AMIODARONE HCL 200 MG TAB PO SCH ×2 (10:44→22:30)
[2017-12-28] MEDS: LISINOPRIL 10 MG TAB PO SCH (10:45)
[2017-12-28] MEDS ORDERED: POTASSIUM CHL 20MEQ/100ML 100 ML IV ONE (13:30)
[2017-12-28] MEDS: LEVOFLOXACIN 750MG 150 ML IV SCH (16:40)
[2017-12-28] MEDS: NOREPINEPHRINE 8 MG/250ML KIT 250 ML IV SCH (16:45)
[2017-12-28] MEDS: MIDAZOLAM DRIP 50 mg/50mL 50 ML IV SCH (19:41)
[2017-12-28] MEDS: SODIUM CHLORIDE 0.9% 1,000 ML IV SCH (20:40)
[2017-12-28] MEDS: ATORVASTATIN 20 MG TAB PO SCH (22:30)
[2017-12-29] VITALS (90 sets, daily range): BP systolic 104–162; BP diastolic 58–102
[2017-12-29] MEDS: PROPOFOL 100 ML IV SCH (00:49)
[2017-12-29 04:10] LABS: Basophils # (auto) 0.1 uL; Basophils % (auto) 0.6 % (0.0-2.0); Eosinophils # (auto) 0.2 uL; Eosinophils % (auto) 1.9 % (0.0-7.0); Hematocrit 38.4 % (41.0-53.0); Lymphocytes # (auto) 0.6 uL; Lymphocytes % (auto) 7.3 % (10.0-50.0); Mean Corpuscular Hemoglobin 30.3 pg (28.0-32.0); Mean Corpuscular Hgb Conc. 33.9 g/dL (32.0-36.0); Mean Corpuscular Volume 89.2 fL (80.0-100.0); Monocytes # (auto) 0.6 uL; Monocytes % (auto) 7.4 % (0.0-12.0); Neutrophils % (auto) 82.8 % (37.0-80.0); Nucleated Red Blood Cells % 0.1 %; Platelet Count (auto) 242 10^3/uL (140-450); Red Blood Cells 4.31 10^6/uL (4.5-5.90); Red Cell Distribution Width 15.2 % (11.8-14.3); White Blood Cell 8.5 10^3/uL (4.4-10.8)
[2017-12-29 04:32] LABS: Albumin 1.7 g/dL (3.4-5.0); BUN/Creatinine Ratio 17.1; Bilirubin, Total 2.5 mg/dL (0.2-1.0); Calcium 7.7 mg/dL (8.5-10.1); Potassium 3.7 mmol/L (3.5-5.1); Total Protein 6.4 g/dL (6.4-8.2)
[2017-12-29] MEDS: NYSTATIN (MOUTH-THROAT) 500,000 UNITS/5 ML SUSP MT SCH ×4 (05:51→21:14)
[2017-12-29] MEDS: SODIUM CHLORIDE 0.9% 1,000 ML IV SCH ×2 (09:00→16:00)
[2017-12-29] MEDS: PANTOPRAZOLE 40 MG/10 ML VIAL IV SCH (10:28)
[2017-12-29] MEDS: THIAMINE HCL 100 MG TAB GT SCH (10:28)
[2017-12-29] MEDS: CLOPIDOGREL BISULFATE 75 MG TAB NG SCH (10:28)
[2017-12-29] MEDS: METOPROLOL TARTRATE 50 MG TAB PO SCH ×2 (10:29→21:13)
[2017-12-29] MEDS: ASPirin 81 mg TAB PO SCH (10:29)
[2017-12-29] MEDS: AMIODARONE HCL 200 MG TAB PO SCH ×2 (10:29→21:13)
[2017-12-29] MEDS: LISINOPRIL 10 MG TAB PO SCH (10:30)
[2017-12-29] MEDS ORDERED: Fibersource Hn 1 Liter GT SCH (10:45)
[2017-12-29] MEDS: LEVOFLOXACIN 750MG 150 ML IV SCH (15:49)
[2017-12-29] MEDS: MIDAZOLAM DRIP 50 mg/50mL 50 ML IV SCH ×2 (16:00)
[2017-12-29] MEDS: NOREPINEPHRINE 8 MG/250ML KIT 250 ML IV SCH (16:45)
[2017-12-29] MEDS: VANCOMYCIN 1,250 MG in D5W 5% 250 ML IV SCH (17:16)
[2017-12-29] MEDS: ATORVASTATIN 20 MG TAB PO SCH (21:13)
[2017-12-30] VITALS (63 sets, daily range): BP systolic 94–163; BP diastolic 50–96
[2017-12-30] MEDS: PROPOFOL 100 ML IV SCH (00:49)
[2017-12-30] MEDS: NYSTATIN (MOUTH-THROAT) 500,000 UNITS/5 ML SUSP MT SCH ×2 (06:00→22:00)
[2017-12-30] MEDS: MIDAZOLAM DRIP 50 mg/50mL 50 ML IV SCH ×2 (06:30→07:30)
[2017-12-30] MEDS: LISINOPRIL 10 MG TAB PO SCH (10:00)
[2017-12-30] MEDS: ASPirin 81 mg TAB PO SCH (11:11)
[2017-12-30] MEDS: CLOPIDOGREL BISULFATE 75 MG TAB NG SCH (11:11)
[2017-12-30] MEDS: THIAMINE HCL 100 MG TAB GT SCH (11:12)
[2017-12-30] MEDS: PANTOPRAZOLE 40 MG/10 ML VIAL IV SCH (11:12)
[2017-12-30] MEDS: AMIODARONE HCL 200 MG TAB PO SCH ×2 (11:12→22:00)
[2017-12-30] MEDS: METOPROLOL TARTRATE 50 MG TAB PO SCH ×2 (11:12→22:00)
[2017-12-30] MEDS: LEVOFLOXACIN 750MG 150 ML IV SCH (16:30)
[2017-12-30] MEDS: NOREPINEPHRINE 8 MG/250ML KIT 250 ML IV SCH (16:45)
[2017-12-30] MEDS: VANCOMYCIN 1,250 MG in D5W 5% 250 ML IV SCH (18:00)
[2017-12-30] MEDS ORDERED: LORazepam 2MG/ML-1ML VIAL IV PRN (22:00)
[2017-12-30] MEDS: ATORVASTATIN 20 MG TAB PO SCH (22:00)
[2017-12-30] MEDS ORDERED: MORPHINE SULFATE 4 MG/ML SYR/VIAL IV PRN (22:00)
[2017-12-31] VITALS (53 sets, daily range): BP systolic 118–156; BP diastolic 68–92
[2017-12-31] MEDS: SODIUM CHLORIDE 0.9% 1,000 ML IV SCH ×2 (01:07→21:00)
[2017-12-31 03:44] LABS: Basophils # (auto) 0 uL; Basophils % (auto) 0.6 % (0.0-2.0); Eosinophils # (auto) 0.2 uL; Eosinophils % (auto) 2.6 % (0.0-7.0); Hematocrit 36.4 % (41.0-53.0); Hemoglobin 12.1 g/dL (13.5-17.5); Lymphocytes # (auto) 0.7 uL; Lymphocytes % (auto) 8.5 % (10.0-50.0); Mean Corpuscular Hemoglobin 30.3 pg (28.0-32.0); Mean Corpuscular Hgb Conc. 33.3 g/dL (32.0-36.0); Mean Corpuscular Volume 90.9 fL (80.0-100.0); Monocytes # (auto) 0.8 uL; Monocytes % (auto) 10.1 % (0.0-12.0); Neutrophils # (auto) 6.1 uL; Neutrophils % (auto) 78.2 % (37.0-80.0); Platelet Count (auto) 221 10^3/uL (140-450); Red Blood Cells 4.01 10^6/uL (4.5-5.90); Red Cell Distribution Width 15.2 % (11.8-14.3); White Blood Cell 7.8 10^3/uL (4.4-10.8)
[2017-12-31 04:01] LABS: Potassium 3.9 mmol/L (3.5-5.1)
[2017-12-31 04:16] LABS: Albumin 1.7 g/dL (3.4-5.0); BUN/Creatinine Ratio 21.5; Calcium 7.6 mg/dL (8.5-10.1)
[2017-12-31 04:19] LABS: Bilirubin, Total 1.7 mg/dL (0.2-1.0); Total Protein 6.1 g/dL (6.4-8.2)
[2017-12-31] MEDS: NYSTATIN (MOUTH-THROAT) 500,000 UNITS/5 ML SUSP MT SCH ×3 (06:18→22:12)
[2017-12-31] MEDS: AMIODARONE HCL 200 MG TAB PO SCH ×2 (10:21→22:12)
[2017-12-31] MEDS: CLOPIDOGREL BISULFATE 75 MG TAB NG SCH (10:21)
[2017-12-31] MEDS: PANTOPRAZOLE 40 MG/10 ML VIAL IV SCH (10:21)
[2017-12-31] MEDS: ASPirin 81 mg TAB PO SCH (10:21)
[2017-12-31] MEDS: THIAMINE HCL 100 MG TAB GT SCH (10:22)
[2017-12-31] MEDS: METOPROLOL TARTRATE 50 MG TAB PO SCH ×2 (10:23→22:13)
[2017-12-31] MEDS: LISINOPRIL 10 MG TAB PO SCH (10:23)
[2017-12-31] MEDS: MIDAZOLAM DRIP 50 mg/50mL 50 ML IV SCH (10:55)
[2017-12-31] MEDS: VANCOMYCIN 1,250 MG in D5W 5% 250 ML IV SCH (17:00)
[2017-12-31] MEDS: LEVOFLOXACIN 750MG 150 ML IV SCH (19:04)
[2017-12-31] MEDS: ATORVASTATIN 20 MG TAB PO SCH (22:12)
[2018-01-01] VITALS (80 sets, daily range): BP systolic 117–160; BP diastolic 60–97
[2018-01-01 04:23] LABS: Basophils # (auto) 0.1 uL; Basophils % (auto) 1.6 % (0.0-2.0); Eosinophils # (auto) 0.2 uL; Eosinophils % (auto) 2.7 % (0.0-7.0); Hematocrit 38.3 % (41.0-53.0); Lymphocytes # (auto) 0.6 uL; Lymphocytes % (auto) 7.4 % (10.0-50.0); Mean Corpuscular Hemoglobin 30.3 pg (28.0-32.0); Mean Corpuscular Volume 89.3 fL (80.0-100.0); Monocytes # (auto) 0.9 uL; Monocytes % (auto) 11.9 % (0.0-12.0); Neutrophils % (auto) 76.4 % (37.0-80.0); Nucleated Red Blood Cells % 0.1 %; Platelet Count (auto) 203 10^3/uL (140-450); Red Blood Cells 4.29 10^6/uL (4.5-5.90); Red Cell Distribution Width 14.5 % (11.8-14.3); White Blood Cell 7.8 10^3/uL (4.4-10.8)
[2018-01-01 04:36] LABS: BUN/Creatinine Ratio 17.3; Calcium 7.6 mg/dL (8.5-10.1)
[2018-01-01] MEDS: VANCOMYCIN 750 MG in D5W 5% 250 ML IV SCH ×2 (05:29→17:00)
[2018-01-01] MEDS: NYSTATIN (MOUTH-THROAT) 500,000 UNITS/5 ML SUSP MT SCH ×3 (06:00→22:00)
[2018-01-01] MEDS: ACETAMINOPHEN 650 mg PER 20 mL UD GT PRN (08:37)
[2018-01-01] MEDS: PANTOPRAZOLE 40 MG/10 ML VIAL IV SCH (09:51)
[2018-01-01] MEDS: CLOPIDOGREL BISULFATE 75 MG TAB NG SCH (09:52)
[2018-01-01] MEDS: LISINOPRIL 10 MG TAB PO SCH (09:52)
[2018-01-01] MEDS: AMIODARONE HCL 200 MG TAB PO SCH ×2 (09:53→22:00)
[2018-01-01] MEDS: METOPROLOL TARTRATE 50 MG TAB PO SCH ×2 (09:53→22:00)
[2018-01-01] MEDS: ASPirin 81 mg TAB PO SCH (09:53)
[2018-01-01] MEDS: THIAMINE HCL 100 MG TAB GT SCH (09:54)
[2018-01-01] MEDS: SODIUM CHLORIDE 0.9% 1,000 ML IV SCH (12:00)
[2018-01-01] MEDS: MIDAZOLAM DRIP 50 mg/50mL 50 ML IV SCH (13:53)
[2018-01-01] MEDS: LEVOFLOXACIN 750MG 150 ML IV SCH (14:00)
[2018-01-01] MEDS: ATORVASTATIN 20 MG TAB PO SCH (22:00)
[2018-01-02] VITALS (83 sets, daily range): BP systolic 107–164; BP diastolic 57–92
[2018-01-02] MEDS: VANCOMYCIN 750 MG in D5W 5% 250 ML IV SCH ×2 (04:45→17:33)
[2018-01-02] MEDS: NYSTATIN (MOUTH-THROAT) 500,000 UNITS/5 ML SUSP MT SCH ×3 (06:11→21:35)
[2018-01-02] MEDS: AMIODARONE HCL 200 MG TAB PO SCH ×2 (09:49→21:36)
[2018-01-02] MEDS: ASPirin 81 mg TAB PO SCH (09:49)
[2018-01-02] MEDS: CLOPIDOGREL BISULFATE 75 MG TAB NG SCH (09:49)
[2018-01-02] MEDS: METOPROLOL TARTRATE 50 MG TAB PO SCH ×2 (09:49→21:35)
[2018-01-02] MEDS: THIAMINE HCL 100 MG TAB GT SCH (09:50)
[2018-01-02] MEDS: PANTOPRAZOLE 40 MG/10 ML VIAL IV SCH (09:50)
[2018-01-02] MEDS: LISINOPRIL 10 MG TAB PO SCH (09:50)
[2018-01-02] MEDS: SODIUM CHLORIDE 0.9% 1,000 ML IV SCH (11:00)
[2018-01-02] MEDS: LEVOFLOXACIN 750MG 150 ML IV SCH (14:00)
[2018-01-02] MEDS: MIDAZOLAM DRIP 50 mg/50mL 50 ML IV SCH (17:33)
[2018-01-02] MEDS: ATORVASTATIN 20 MG TAB PO SCH (21:35)
[2018-01-03] VITALS (72 sets, daily range): BP systolic 99–167; BP diastolic 51–89
[2018-01-03 04:09] LABS: Basophils # (auto) 0.1 uL; Basophils % (auto) 0.7 % (0.0-2.0); Eosinophils # (auto) 0.1 uL; Eosinophils % (auto) 1.8 % (0.0-7.0); Hematocrit 38.4 % (41.0-53.0); Hemoglobin 12.8 g/dL (13.5-17.5); Lymphocytes # (auto) 0.8 uL; Lymphocytes % (auto) 10.1 % (10.0-50.0); Mean Corpuscular Hgb Conc. 33.4 g/dL (32.0-36.0); Mean Corpuscular Volume 89.8 fL (80.0-100.0); Monocytes % (auto) 12.7 % (0.0-12.0); Neutrophils # (auto) 5.8 uL; Neutrophils % (auto) 74.7 % (37.0-80.0); Nucleated Red Blood Cells % 0.1 %; Platelet Count (auto) 229 10^3/uL (140-450); Red Blood Cells 4.28 10^6/uL (4.5-5.90); Red Cell Distribution Width 14.8 % (11.8-14.3); White Blood Cell 7.8 10^3/uL (4.4-10.8)
[2018-01-03 04:14] LABS: INR 1.01 (0.9-1.15)
[2018-01-03 04:21] LABS: BUN/Creatinine Ratio 21.8; Calcium 7.9 mg/dL (8.5-10.1); Potassium 4.5 mmol/L (3.5-5.1)
[2018-01-03] MEDS: VANCOMYCIN 750 MG in D5W 5% 250 ML IV SCH ×2 (05:12→17:17)
[2018-01-03] MEDS: NYSTATIN (MOUTH-THROAT) 500,000 UNITS/5 ML SUSP MT SCH ×3 (06:12→21:29)
[2018-01-03] MEDS: MIDAZOLAM DRIP 50 mg/50mL 50 ML IV SCH (07:43)
[2018-01-03] MEDS ORDERED: ceFAZolin 1GM/50ML 50 ML IV ONE (08:56)
[2018-01-03] MEDS ORDERED: ROCURONIUM 10MG/ML 10ML VIAL IV ONE (09:00)
[2018-01-03] MEDS ORDERED: fentaNYL CITRATE 100 MCG/2 ML VL ONE (09:09)
[2018-01-03] MEDS ORDERED: HYDROmorphone HCL 2 MG/ML VL IV PRN (09:30)
[2018-01-03] MEDS ORDERED: MIDAZOLAM HCL 1MG/1ML-2 ML VIAL ONE (09:36)
[2018-01-03] MEDS: SODIUM CHLORIDE 0.9% 1,000 ML IV SCH (10:11)
[2018-01-03] MEDS: ASPirin 81 mg TAB PO SCH (10:11)
[2018-01-03] MEDS: THIAMINE HCL 100 MG TAB GT SCH (10:11)
[2018-01-03] MEDS: AMIODARONE HCL 200 MG TAB PO SCH ×2 (10:11→21:29)
[2018-01-03] MEDS: METOPROLOL TARTRATE 50 MG TAB PO SCH ×2 (10:12→21:29)
[2018-01-03] MEDS: LISINOPRIL 10 MG TAB PO SCH (10:13)
[2018-01-03] MEDS: PANTOPRAZOLE 40 MG/10 ML VIAL IV SCH (10:13)
[2018-01-03] MEDS: CLOPIDOGREL BISULFATE 75 MG TAB NG SCH (10:13)
[2018-01-03] MEDS: LEVOFLOXACIN 750MG 150 ML IV SCH (14:13)
[2018-01-03] MEDS: ATORVASTATIN 20 MG TAB PO SCH (21:28)
[2018-01-04] VITALS (50 sets, daily range): BP systolic 97–159; BP diastolic 51–91
[2018-01-04] MEDS: MIDAZOLAM DRIP 50 mg/50mL 50 ML IV SCH
[2018-01-04 04:18] LABS: Basophils # (auto) 0.1 uL; Basophils % (auto) 0.8 % (0.0-2.0); Eosinophils # (auto) 0.1 uL; Eosinophils % (auto) 1.6 % (0.0-7.0); Hematocrit 34.7 % (41.0-53.0); Hemoglobin 11.7 g/dL (13.5-17.5); Lymphocytes # (auto) 0.8 uL; Lymphocytes % (auto) 10.4 % (10.0-50.0); Mean Corpuscular Hemoglobin 30.3 pg (28.0-32.0); Mean Corpuscular Hgb Conc. 33.8 g/dL (32.0-36.0); Mean Corpuscular Volume 89.6 fL (80.0-100.0); Monocytes # (auto) 0.9 uL; Monocytes % (auto) 11.7 % (0.0-12.0); Neutrophils # (auto) 6.1 uL; Neutrophils % (auto) 75.5 % (37.0-80.0); Nucleated Red Blood Cells % 0.1 %; Platelet Count (auto) 204 10^3/uL (140-450); Red Blood Cells 3.87 10^6/uL (4.5-5.90); Red Cell Distribution Width 14.6 % (11.8-14.3)
[2018-01-04] MEDS: VANCOMYCIN 750 MG in D5W 5% 250 ML IV SCH (04:40)
[2018-01-04 04:43] LABS: Albumin 1.8 g/dL (3.4-5.0); BUN/Creatinine Ratio 19.2; Bilirubin, Total 1.9 mg/dL (0.2-1.0); Calcium 7.9 mg/dL (8.5-10.1); Potassium 4.2 mmol/L (3.5-5.1); Total Protein 6.7 g/dL (6.4-8.2)
[2018-01-04] MEDS: SODIUM CHLORIDE 0.9% 1,000 ML IV SCH (05:00)
[2018-01-04] MEDS: NYSTATIN (MOUTH-THROAT) 500,000 UNITS/5 ML SUSP MT SCH ×3 (05:33→21:30)
[2018-01-04] MEDS: CLOPIDOGREL BISULFATE 75 MG TAB NG SCH (07:15)
[2018-01-04] MEDS: THIAMINE HCL 100 MG TAB GT SCH (10:22)
[2018-01-04] MEDS: ASPirin 81 mg TAB PO SCH (10:23)
[2018-01-04] MEDS: Fibersource Hn 1 Liter NG SCH (10:23)
[2018-01-04] MEDS: AMIODARONE HCL 200 MG TAB PO SCH ×2 (10:23→21:30)
[2018-01-04] MEDS: METOPROLOL TARTRATE 50 MG TAB PO SCH ×2 (10:23→21:30)
[2018-01-04] MEDS: PANTOPRAZOLE 40 MG/10 ML VIAL IV SCH (10:23)
[2018-01-04] MEDS: LISINOPRIL 10 MG TAB PO SCH (10:24)
[2018-01-04] MEDS: LEVOFLOXACIN 750MG 150 ML IV SCH (13:53)
[2018-01-04] MEDS: ATORVASTATIN 20 MG TAB PO SCH (21:30)
[2018-01-05] VITALS (60 sets, daily range): BP systolic 103–174; BP diastolic 57–93
[2018-01-05] MEDS: SODIUM CHLORIDE 0.9% 1,000 ML IV SCH ×2 (01:00→21:22)
[2018-01-05] MEDS: NYSTATIN (MOUTH-THROAT) 500,000 UNITS/5 ML SUSP MT SCH ×3 (05:51→21:26)
[2018-01-05] MEDS ORDERED: SODIUM CHLORIDE 0.9 % NEB SOLN 3ML NEB ONE (08:25)
[2018-01-05] MEDS: MIDAZOLAM DRIP 50 mg/50mL 50 ML IV SCH (08:53)
[2018-01-05] MEDS: Fibersource Hn 1 Liter NG SCH (09:43)
[2018-01-05] MEDS: CLOPIDOGREL BISULFATE 75 MG TAB NG SCH (09:43)
[2018-01-05] MEDS: PANTOPRAZOLE 40 MG/10 ML VIAL IV SCH (09:43)
[2018-01-05] MEDS: THIAMINE HCL 100 MG TAB GT SCH (09:43)
[2018-01-05] MEDS: ASPirin 81 mg TAB PO SCH (09:44)
[2018-01-05] MEDS: AMIODARONE HCL 200 MG TAB PO SCH ×2 (09:44→21:26)
[2018-01-05] MEDS: LISINOPRIL 10 MG TAB PO SCH (09:44)
[2018-01-06] VITALS (56 sets, daily range): BP systolic 97–153; BP diastolic 54–89
[2018-01-06 04:03] LABS: Basophils # (auto) 0 uL; Basophils % (auto) 0.6 % (0.0-2.0); Eosinophils # (auto) 0.1 uL; Eosinophils % (auto) 1.8 % (0.0-7.0); Hematocrit 32.8 % (41.0-53.0); Hemoglobin 11.2 g/dL (13.5-17.5); Lymphocytes # (auto) 0.6 uL; Lymphocytes % (auto) 8.7 % (10.0-50.0); Mean Corpuscular Hemoglobin 30.3 pg (28.0-32.0); Mean Corpuscular Hgb Conc. 34.1 g/dL (32.0-36.0); Mean Corpuscular Volume 88.9 fL (80.0-100.0); Monocytes # (auto) 0.9 uL; Monocytes % (auto) 12.7 % (0.0-12.0); Neutrophils # (auto) 5.4 uL; Neutrophils % (auto) 76.2 % (37.0-80.0); Platelet Count (auto) 199 10^3/uL (140-450); Red Blood Cells 3.68 10^6/uL (4.5-5.90); Red Cell Distribution Width 14.4 % (11.8-14.3); White Blood Cell 7.1 10^3/uL (4.4-10.8)
[2018-01-06 04:33] LABS: Albumin 1.8 g/dL (3.4-5.0); BUN/Creatinine Ratio 22.7; Bilirubin, Total 1.5 mg/dL (0.2-1.0); Potassium 4.3 mmol/L (3.5-5.1)
[2018-01-06] MEDS: NYSTATIN (MOUTH-THROAT) 500,000 UNITS/5 ML SUSP MT SCH ×3 (06:08→22:29)
[2018-01-06] MEDS: MIDAZOLAM DRIP 50 mg/50mL 50 ML IV SCH (08:53)
[2018-01-06] MEDS: Fibersource Hn 1 Liter NG SCH (10:00)
[2018-01-06] MEDS: CLOPIDOGREL BISULFATE 75 MG TAB NG SCH (10:00)
[2018-01-06] MEDS: AMIODARONE HCL 200 MG TAB PO SCH ×2 (10:00→22:00)
[2018-01-06] MEDS: THIAMINE HCL 100 MG TAB GT SCH (10:00)
[2018-01-06] MEDS: SODIUM CHLORIDE 0.9% 1,000 ML IV SCH (13:53)
[2018-01-06] MEDS: METOCLOPRAMIDE HCL 5MG/ml INJ 2ml VIAL IV SCH (22:29)
[2018-01-07] VITALS (40 sets, daily range): BP systolic 107–159; BP diastolic 57–98
[2018-01-07] MEDS: NYSTATIN (MOUTH-THROAT) 500,000 UNITS/5 ML SUSP MT SCH ×3 (05:41→22:15)
[2018-01-07] MEDS: METOCLOPRAMIDE HCL 5MG/ml INJ 2ml VIAL IV SCH ×3 (05:41→22:14)
[2018-01-07] MEDS: MIDAZOLAM DRIP 50 mg/50mL 50 ML IV SCH (08:18)
[2018-01-07] MEDS: Fibersource Hn 1 Liter NG SCH (10:00)
[2018-01-07] MEDS: AMIODARONE HCL 200 MG TAB PO SCH ×2 (10:15→22:15)
[2018-01-07] MEDS: CLOPIDOGREL BISULFATE 75 MG TAB NG SCH (10:15)
[2018-01-07] MEDS: THIAMINE HCL 100 MG TAB GT SCH (10:20)
[2018-01-07] MEDS: SODIUM CHLORIDE 0.9% 1,000 ML IV SCH (13:00)
[2018-01-08] VITALS (36 sets, daily range): BP systolic 107–173; BP diastolic 47–100
[2018-01-08] MEDS: NYSTATIN (MOUTH-THROAT) 500,000 UNITS/5 ML SUSP MT SCH ×3 (06:15→22:41)
[2018-01-08] MEDS: METOCLOPRAMIDE HCL 5MG/ml INJ 2ml VIAL IV SCH ×3 (06:15→22:41)
[2018-01-08] MEDS: MIDAZOLAM DRIP 50 mg/50mL 50 ML IV SCH (08:53)
[2018-01-08] MEDS: SODIUM CHLORIDE 0.9% 1,000 ML IV SCH (09:00)
[2018-01-08] MEDS: CLOPIDOGREL BISULFATE 75 MG TAB NG SCH (10:14)
[2018-01-08] MEDS: Fibersource Hn 1 Liter NG SCH (10:14)
[2018-01-08] MEDS: THIAMINE HCL 100 MG TAB GT SCH (10:14)
[2018-01-09] VITALS (24 sets, daily range): BP systolic 101–177; BP diastolic 58–103
[2018-01-09] MEDS: NYSTATIN (MOUTH-THROAT) 500,000 UNITS/5 ML SUSP MT SCH ×3 (06:32→22:00)
[2018-01-09] MEDS: SODIUM CHLORIDE 0.9% 1,000 ML IV SCH (06:32)
[2018-01-09] MEDS: METOCLOPRAMIDE HCL 5MG/ml INJ 2ml VIAL IV SCH ×3 (06:32→23:00)
[2018-01-09] MEDS: MIDAZOLAM DRIP 50 mg/50mL 50 ML IV SCH (08:53)
[2018-01-09] MEDS: Fibersource Hn 1 Liter NG SCH (10:00)
[2018-01-09] MEDS: CLOPIDOGREL BISULFATE 75 MG TAB NG SCH (10:00)
[2018-01-09] MEDS: THIAMINE HCL 100 MG TAB GT SCH (10:00)
[2018-01-10] VITALS (8 sets, daily range): BP systolic 100–158; BP diastolic 61–89
[2018-01-10] MEDS: SODIUM CHLORIDE 0.9% 1,000 ML IV SCH ×2 (01:00→13:42)
[2018-01-10] MEDS: NYSTATIN (MOUTH-THROAT) 500,000 UNITS/5 ML SUSP MT SCH ×3 (06:00→22:43)
[2018-01-10] MEDS: METOCLOPRAMIDE HCL 5MG/ml INJ 2ml VIAL IV SCH ×3 (06:22→22:43)
[2018-01-10] MEDS: CLOPIDOGREL BISULFATE 75 MG TAB NG SCH (09:39)
[2018-01-10] MEDS: THIAMINE HCL 100 MG TAB GT SCH (09:39)
[2018-01-10] MEDS: Fibersource Hn 1 Liter NG SCH (10:54)
[2018-01-10] MEDS: MIDAZOLAM DRIP 50 mg/50mL 50 ML IV SCH (10:55)
[2018-01-11] VITALS (7 sets, daily range): BP systolic 112–140; BP diastolic 64–86
[2018-01-11] MEDS: NYSTATIN (MOUTH-THROAT) 500,000 UNITS/5 ML SUSP MT SCH ×3 (06:39→22:26)
[2018-01-11] MEDS: METOCLOPRAMIDE HCL 5MG/ml INJ 2ml VIAL IV SCH ×3 (06:39→22:26)
[2018-01-11] MEDS: Fibersource Hn 1 Liter NG SCH (10:00)
[2018-01-11] MEDS: THIAMINE HCL 100 MG TAB GT SCH (10:32)
[2018-01-11] MEDS: CLOPIDOGREL BISULFATE 75 MG TAB NG SCH (10:32)
[2018-01-11] MEDS: SODIUM CHLORIDE 0.9% 1,000 ML IV SCH (17:00)
[2018-01-12 05:00] VITALS: BP 156/82
[2018-01-12] MEDS: METOCLOPRAMIDE HCL 5MG/ml INJ 2ml VIAL IV SCH ×3 (06:24→21:40)
[2018-01-12] MEDS: NYSTATIN (MOUTH-THROAT) 500,000 UNITS/5 ML SUSP MT SCH ×3 (06:24→21:40)
[2018-01-12 09:00] VITALS: BP 124/71
[2018-01-12] MEDS: CLOPIDOGREL BISULFATE 75 MG TAB NG SCH (09:04)
[2018-01-12] MEDS: Fibersource Hn 1 Liter NG SCH (09:05)
[2018-01-12 13:00] VITALS: BP 112/68
[2018-01-12] MEDS: SODIUM CHLORIDE 0.9% 1,000 ML IV SCH (13:43)
[2018-01-12 17:00] VITALS: BP 118/77
[2018-01-12 21:05] VITALS: BP 118/77
[2018-01-12 22:00] VITALS: BP 146/73
[2018-01-13 05:28] VITALS: BP 148/83
[2018-01-13] MEDS: NYSTATIN (MOUTH-THROAT) 500,000 UNITS/5 ML SUSP MT SCH ×2 (06:31→13:01)
[2018-01-13] MEDS: METOCLOPRAMIDE HCL 5MG/ml INJ 2ml VIAL IV SCH ×3 (06:31→22:15)
[2018-01-13 08:00] VITALS: BP 133/75
[2018-01-13 08:33] VITALS: BP 133/75
[2018-01-13] MEDS: Fibersource Hn 1 Liter NG SCH (08:37)
[2018-01-13] MEDS: CLOPIDOGREL BISULFATE 75 MG TAB NG SCH (08:37)
[2018-01-13] MEDS: SODIUM CHLORIDE 0.9% 1,000 ML IV SCH (08:37)
[2018-01-13 11:50] VITALS: BP 146/74
[2018-01-13 16:31] VITALS: BP 114/68
[2018-01-13 21:35] VITALS: BP 117/69
[2018-01-14 05:00] VITALS: BP 144/85
[2018-01-14] MEDS: SODIUM CHLORIDE 0.9% 1,000 ML IV SCH (05:07)
[2018-01-14] MEDS: METOCLOPRAMIDE HCL 5MG/ml INJ 2ml VIAL IV SCH ×3 (05:50→22:09)
[2018-01-14 08:44] VITALS: BP 136/80
[2018-01-14] MEDS: CLOPIDOGREL BISULFATE 75 MG TAB NG SCH (10:06)
[2018-01-14] MEDS: Fibersource Hn 1 Liter NG SCH (10:08)
[2018-01-14 12:29] VITALS: BP 122/77
[2018-01-14 16:54] VITALS: BP 136/80
[2018-01-14 22:00] VITALS: BP 134/77
[2018-01-15] VITALS (7 sets, daily range): BP systolic 126–145; BP diastolic 74–78
[2018-01-15] MEDS: METOCLOPRAMIDE HCL 5MG/ml INJ 2ml VIAL IV SCH ×3 (05:55→21:26)
[2018-01-15] MEDS: CLOPIDOGREL BISULFATE 75 MG TAB NG SCH (10:00)
[2018-01-15] MEDS: Fibersource Hn 1 Liter NG SCH (10:06)
[2018-01-15] MEDS: DOXYCYCLINE HYC 100MG/250ML 250 ML IV SCH (17:09)
[2018-01-15] MEDS: ACETAMINOPHEN 325 MG RECT SUPP PR PRN (17:10)
[2018-01-15 18:07] LABS: Basophils # (auto) 0.1 uL; Basophils % (auto) 1.5 % (0.0-2.0); Eosinophils # (auto) 0.3 uL; Eosinophils % (auto) 5.3 % (0.0-7.0); Hematocrit 30.8 % (41.0-53.0); Hemoglobin 10.5 g/dL (13.5-17.5); Lymphocytes # (auto) 0.8 uL; Lymphocytes % (auto) 12.8 % (10.0-50.0); Mean Corpuscular Hemoglobin 29.7 pg (28.0-32.0); Mean Corpuscular Volume 87.5 fL (80.0-100.0); Monocytes # (auto) 0.6 uL; Monocytes % (auto) 9.7 % (0.0-12.0); Neutrophils # (auto) 4.6 uL; Neutrophils % (auto) 70.7 % (37.0-80.0); Platelet Count (auto) 243 10^3/uL (140-450); Red Blood Cells 3.52 10^6/uL (4.5-5.90); Red Cell Distribution Width 14.3 % (11.8-14.3); White Blood Cell 6.4 10^3/uL (4.4-10.8)
[2018-01-15 18:27] LABS: Albumin 1.9 g/dL (3.4-5.0); BUN/Creatinine Ratio 32.8; Bilirubin, Total 0.8 mg/dL (0.2-1.0); Calcium 8.4 mg/dL (8.5-10.1); Potassium 4.5 mmol/L (3.5-5.1); Total Protein 6.9 g/dL (6.4-8.2)
[2018-01-15 18:47] LABS: Urine Bacteria NONE SEEN /hpf (None Seen); Urine Blood 1+ /uL (Negative); Urine Specific Gravity 1.016 (1.001-1.035); Urine WBC 4 /hpf (0 - 3)
[2018-01-16] MEDS: DOXYCYCLINE HYC 100MG/250ML 250 ML IV SCH ×2 (05:05→17:12)
[2018-01-16] MEDS: METOCLOPRAMIDE HCL 5MG/ml INJ 2ml VIAL IV SCH ×3 (05:27→21:52)
[2018-01-16 05:35] VITALS: BP 128/74
[2018-01-16 09:00] VITALS: BP 133/73
[2018-01-16] MEDS: CLOPIDOGREL BISULFATE 75 MG TAB NG SCH (10:00)
[2018-01-16] MEDS: Fibersource Hn 1 Liter NG SCH (11:07)
[2018-01-16 13:00] VITALS: BP 127/75
[2018-01-16 17:08] VITALS: BP 135/79
[2018-01-16 22:00] VITALS: BP 118/71
[2018-01-17] MEDS: DOXYCYCLINE HYC 100MG/250ML 250 ML IV SCH ×2 (04:31→17:47)
[2018-01-17] MEDS: METOCLOPRAMIDE HCL 5MG/ml INJ 2ml VIAL IV SCH ×3 (05:44→21:19)
[2018-01-17 06:08] VITALS: BP 124/70
[2018-01-17 08:00] VITALS: BP 126/68
[2018-01-17] MEDS: CLOPIDOGREL BISULFATE 75 MG TAB NG SCH (10:00)
[2018-01-17] MEDS: Fibersource Hn 1 Liter NG SCH (10:33)
[2018-01-17 12:00] VITALS: BP 123/67
[2018-01-17 14:24] VITALS: BP 123/67
[2018-01-17 17:00] VITALS: BP 152/81
[2018-01-17 23:27] VITALS: BP 151/85
[2018-01-18] VITALS (8 sets, daily range): BP systolic 115–149; BP diastolic 74–94
[2018-01-18] MEDS: DOXYCYCLINE HYC 100MG/250ML 250 ML IV SCH ×2 (04:18→17:39)
[2018-01-18] MEDS: METOCLOPRAMIDE HCL 5MG/ml INJ 2ml VIAL IV SCH ×3 (05:28→21:21)
[2018-01-18] MEDS: Fibersource Hn 1 Liter NG SCH (10:00)
[2018-01-19] MEDS: METOCLOPRAMIDE HCL 5MG/ml INJ 2ml VIAL IV SCH ×3 (05:19→21:43)
[2018-01-19] MEDS: DOXYCYCLINE HYC 100MG/250ML 250 ML IV SCH ×2 (05:19→17:44)
[2018-01-19 05:23] VITALS: BP 119/71
[2018-01-19 07:22] VITALS: BP 129/85
[2018-01-19] MEDS: Fibersource Hn 1 Liter NG SCH (10:00)
[2018-01-19 11:31] VITALS: BP 134/87
[2018-01-19 16:28] VITALS: BP 121/72
[2018-01-19 22:00] VITALS: BP 122/71
[2018-01-20 05:15] VITALS: BP 133/83
[2018-01-20] MEDS: DOXYCYCLINE HYC 100MG/250ML 250 ML IV SCH ×2 (05:35→16:41)
[2018-01-20] MEDS: METOCLOPRAMIDE HCL 5MG/ml INJ 2ml VIAL IV SCH ×3 (05:36→22:42)
[2018-01-20 08:00] VITALS: BP 125/70
[2018-01-20 09:00] VITALS: BP 125/70
[2018-01-20] MEDS: Fibersource Hn 1 Liter NG SCH (09:09)
[2018-01-20 13:00] VITALS: BP 128/83
[2018-01-20 17:00] VITALS: BP_SYST 125; BP_SYST 126; BP_DIAS 70; BP_DIAS 75
[2018-01-20 22:00] VITALS: BP 127/77
[2018-01-21] MEDS: DOXYCYCLINE HYC 100MG/250ML 250 ML IV SCH ×2 (04:51→18:45)
[2018-01-21 05:25] VITALS: BP 119/69
[2018-01-21] MEDS: METOCLOPRAMIDE HCL 5MG/ml INJ 2ml VIAL IV SCH ×3 (06:35→22:49)
[2018-01-21 09:00] VITALS: BP 139/88
[2018-01-21] MEDS: Fibersource Hn 1 Liter NG SCH (11:25)
[2018-01-21 13:00] VITALS: BP 135/73
[2018-01-21] MEDS: ACETAMINOPHEN 325 MG RECT SUPP PR PRN (15:51)
[2018-01-21 17:00] VITALS: BP 140/80
[2018-01-21 21:39] VITALS: BP 135/85
[2018-01-22] VITALS (8 sets, daily range): BP systolic 114–140; BP diastolic 72–86
[2018-01-22] MEDS: Fibersource Hn 1 Liter NG SCH (02:10)
[2018-01-22] MEDS: DOXYCYCLINE HYC 100MG/250ML 250 ML IV SCH ×2 (05:42→16:20)
[2018-01-22] MEDS: METOCLOPRAMIDE HCL 5MG/ml INJ 2ml VIAL IV SCH ×3 (06:15→22:49)
[2018-01-23] VITALS (8 sets, daily range): BP systolic 125–156; BP diastolic 58–88
[2018-01-23] MEDS: DOXYCYCLINE HYC 100MG/250ML 250 ML IV SCH ×2 (04:38→16:17)
[2018-01-23] MEDS: METOCLOPRAMIDE HCL 5MG/ml INJ 2ml VIAL IV SCH ×3 (05:54→22:30)
[2018-01-23] MEDS: Fibersource Hn 1 Liter NG SCH (22:31)
[2018-01-24] VITALS (8 sets, daily range): BP systolic 118–132; BP diastolic 70–77
[2018-01-24] MEDS: DOXYCYCLINE HYC 100MG/250ML 250 ML IV SCH ×2 (04:29→16:45)
[2018-01-24] MEDS: METOCLOPRAMIDE HCL 5MG/ml INJ 2ml VIAL IV SCH ×3 (05:05→21:53)
[2018-01-24] MEDS: ACETAMINOPHEN 325 MG RECT SUPP PR PRN (12:00)
[2018-01-25] VITALS (9 sets, daily range): BP systolic 91–131; BP diastolic 62–76
[2018-01-25] MEDS: Fibersource Hn 1 Liter NG SCH ×2 (00:23→16:39)
[2018-01-25] MEDS: DOXYCYCLINE HYC 100MG/250ML 250 ML IV SCH ×2 (04:48→16:39)
[2018-01-25 06:02] LABS: Basophils # (auto) 0 uL; Basophils % (auto) 0.5 % (0.0-2.0); Eosinophils # (auto) 0.1 uL; Eosinophils % (auto) 1.1 % (0.0-7.0); Hematocrit 27.5 % (41.0-53.0); Hemoglobin 9.3 g/dL (13.5-17.5); Lymphocytes % (auto) 13.8 % (10.0-50.0); Mean Corpuscular Hemoglobin 29.5 pg (28.0-32.0); Mean Corpuscular Hgb Conc. 33.8 g/dL (32.0-36.0); Mean Corpuscular Volume 87.4 fL (80.0-100.0); Monocytes # (auto) 0.7 uL; Monocytes % (auto) 10.4 % (0.0-12.0); Neutrophils # (auto) 5.3 uL; Neutrophils % (auto) 74.2 % (37.0-80.0); Platelet Count (auto) 161 10^3/uL (140-450); Red Blood Cells 3.14 10^6/uL (4.5-5.90); Red Cell Distribution Width 14.8 % (11.8-14.3); White Blood Cell 7.1 10^3/uL (4.4-10.8)
[2018-01-25 06:37] LABS: BUN/Creatinine Ratio 57.4; Potassium 4.2 mmol/L (3.5-5.1)
[2018-01-25 06:38] LABS: Albumin 1.7 g/dL (3.4-5.0); Calcium 7.9 mg/dL (8.5-10.1); Total Protein 6.4 g/dL (6.4-8.2)
[2018-01-25 09:36] LABS: Urine Bacteria MOD /hpf (None Seen); Urine Blood Negative /uL (Negative); Urine Mucus FEW (None Seen); Urine Specific Gravity 1.023 (1.001-1.035); Urine WBC 83 /hpf (0 - 3)
[2018-01-25 15:37] LABS: INR 1.02 (0.9-1.15); Prothrombin Time 11.1 sec (9.37-12.3)
[2018-01-25] MEDS: ACETAMINOPHEN 325 MG RECT SUPP PR PRN (16:38)
[2018-01-26] VITALS (8 sets, daily range): BP systolic 118–152; BP diastolic 71–86
[2018-01-26] MEDS: DOXYCYCLINE HYC 100MG/250ML 250 ML IV SCH ×2 (04:57→17:11)
[2018-01-26 09:58] LABS: INR 1.02 (0.9-1.15); Partial Thromboplastin Time 27.1 sec (22.64-33.71); Prothrombin Time 11.1 sec (9.37-12.3)
[2018-01-26] MEDS ORDERED: LIDOCAINE VISCOUS 2% 15ML UD ONE (10:32)
[2018-01-26] MEDS ORDERED: MIDAZOLAM HCL 5 MG/ML-1ML VIAL ONE (10:33)
[2018-01-26] MEDS ORDERED: diphenhdrAMINE HCL 50 MG/1 ML VL ONE (10:33)
[2018-01-26] MEDS ORDERED: fentaNYL CITRATE 100 MCG/2 ML VL ONE (10:33)
[2018-01-26] MEDS ORDERED: ceFAZolin 1GM/50ML 50 ML IV ONE ×2 (14:45→14:46)
[2018-01-26] MEDS: D5W/SOD CHL 0.45% 1,000 ML IV SCH (17:11)
[2018-01-27] VITALS (7 sets, daily range): BP systolic 126–155; BP diastolic 67–86
[2018-01-27] MEDS: DOXYCYCLINE HYC 100MG/250ML 250 ML IV SCH ×2 (04:35→16:53)
[2018-01-27] MEDS: D5W/SOD CHL 0.45% 1,000 ML IV SCH (06:05)
[2018-01-27] MEDS: Fibersource Hn 1 Liter NG SCH (15:00)
[2018-01-27 17:25] LABS: Urine Bacteria NONE SEEN /hpf (None Seen); Urine Blood 2+ /uL (Negative); Urine Specific Gravity 1.021 (1.001-1.035); Urine WBC 20 /hpf (0 - 3)
[2018-01-27 17:38] LABS: Urine Budding Yeast Few /hpf (None Seen)
[2018-01-28] MEDS: D5W/SOD CHL 0.45% 1,000 ML IV SCH ×2 (04:12→08:45)
[2018-01-28] MEDS: DOXYCYCLINE HYC 100MG/250ML 250 ML IV SCH (04:33)
[2018-01-28] MEDS: Fibersource Hn 1 Liter NG SCH (04:42)
[2018-01-28 05:00] VITALS: BP 126/76
[2018-01-28 08:00] VITALS: BP 150/73
[2018-01-28 09:00] VITALS: BP 150/73
[2018-01-28 13:00] VITALS: BP 140/70
== END 2018-01-28 14:00 | DRG 3 ==
LOC: ER 07:49 → EDBD 07:49 → CATH 11:20 → ICU WEST 11:21 → TELE-WESTW 01-09 14:29
PROVIDERS: ADMIT Internal Medicine; ATTEND Internal Medicine
PROC: 4A023N7 Measurement of Cardiac Sampling and Pressure, Left Heart, Percutaneous Approach (ICD-10-PCS; principal; 2017-12-17)
PROC: 027036Z Dilation of Coronary Artery, One Artery with Three Drug-eluting Intraluminal Devices, Percutaneous Approach (ICD-10-PCS; 2017-12-17)
PROC: 02C03ZZ Extirpation of Matter from Coronary Artery, One Artery, Percutaneous Approach (ICD-10-PCS; 2017-12-17)
PROC: B2151ZZ Fluoroscopy of Left Heart using Low Osmolar Contrast (ICD-10-PCS; 2017-12-17)
PROC: B2111ZZ Fluoroscopy of Multiple Coronary Arteries using Low Osmolar Contrast (ICD-10-PCS; 2017-12-17)
PROC: 0BH17EZ Insertion of Endotracheal Airway into Trachea, Via Natural or Artificial Opening (ICD-10-PCS; 2017-12-17)
PROC: 5A1955Z Respiratory Ventilation, Greater than 96 Consecutive Hours (ICD-10-PCS; 2017-12-17)
PROC: 5A12012 Performance of Cardiac Output, Single, Manual (ICD-10-PCS; 2017-12-17)
PROC: 02HV33Z Insertion of Infusion Device into Superior Vena Cava, Percutaneous Approach (ICD-10-PCS; 2017-12-17)
PROC: 0B110F4 Bypass Trachea to Cutaneous with Tracheostomy Device, Open Approach (ICD-10-PCS; 2018-01-03)
PROC: 0DH63UZ Insertion of Feeding Device into Stomach, Percutaneous Approach (ICD-10-PCS; 2018-01-26)
DX: I21.4 Non-ST elevation (NSTEMI) myocardial infarction (principal); I46.9 Cardiac arrest, cause unspecified; G93.1 Anoxic brain damage, not elsewhere classified; J96.01 Acute respiratory failure with hypoxia; Z99.11 Dependence on respirator [ventilator] status; E87.1 Hypo-osmolality and hyponatremia; K76.9 Liver disease, unspecified; E78.5 Hyperlipidemia, unspecified; R73.9 Hyperglycemia, unspecified; J44.9 Chronic obstructive pulmonary disease, unspecified; I99.8 Other disorder of circulatory system; I70.0 Atherosclerosis of aorta; E87.6 Hypokalemia; F17.210 Nicotine dependence, cigarettes, uncomplicated; I11.0 Hypertensive heart disease with heart failure; I50.9 Heart failure, unspecified; I71.4 Abdominal aortic aneurysm, without rupture; K21.9 Gastro-esophageal reflux disease without esophagitis; Z82.49 Family history of ischemic heart disease and other diseases of the circulatory system; Z71.3 Dietary counseling and surveillance
CPT/HCPCS: 36415; 36600; 43246; 70450; 71045; 71260; 74177; 76705; 80048; 80053; 80061; 80202; 80307; 81001; 82550; 82805; 82962; 83036; 83605; 83880; 84484; 85007; 85025; 85027; 85610; 85652; 85730; 86141; 86850; 86900; 86901; 87040; 87070; 87077; 87081; 87086; 87088; 87186; 87205; 92933; 93005; 93306; 93458; 94002; 94003; 95819; 99152; C1874; C9113; J0690; J1815; J1956; J2250; J2543; J2704; J3480; J3490; J7060; Q9967